=== PATIENT | female | born 1970 | race Caucasian/White ===

== ENCOUNTER 2018-03-08 06:31 | Day surgery (SDC) | payer OTHER ==
[~2018-03-08 06:31] MED LIST: CEFAZOLIN 1 GM/D5W RTU 1 GM/50 ML RTUPB IV PRN
[2018-03-08] MEDS ORDERED: FENTANYL CITRATE INJ/PF 100 MCG/2 ML AMPUL ONE (06:54)
[2018-03-08] MEDS ORDERED: MIDAZOLAM 2 MG/2 ML INJ ONE (06:54)
[2018-03-08] MEDS ORDERED: PROPOFOL INJ 200 MG/20 ML VIAL IV ONE (06:54)
[2018-03-08] MEDS ORDERED: LIDOCAINE 0.5% INJ-PF (5 MG/ML) 50 ML SDV ONE (07:00)
[2018-03-08] MEDS ORDERED: POLYMYXIN B SULFATE INJ 500000 UNIT VIAL ONE (07:18)
[2018-03-08] MEDS ORDERED: BUPIVACAINE HCL 0.5 % INJ/PF 30 ML SDV ONE (07:18)
[2018-03-08] MEDS ORDERED: LIDOCAINE 2% INJ (20 MG/ML) 20 ML MDV ONE (07:18)
[2018-03-08] MEDS ORDERED: BACITRACIN INJ 50,000 UNIT VIAL ONE (07:19)
[2018-03-08] MEDS ORDERED: NORMAL SALINE INJ/PF 0.9% 10 ML SDV ONE (07:20)
[2018-03-08] MEDS ORDERED: ALBUTEROL SULFATE 0.083% NEB 2.5 MG/3 ML AMPUL NEB ONE (07:29)
--- NOTE | 2018-03-08 09:24 | [facility] OPERATIVE REPORT E ---
[facility] Operative Report NAME: RAFAEL ALVAREZ AGE: 47Y DATE OF SURGERY: 03/08/2018 ROOM: PREOPERATIVE DIAGNOSIS: Hammertoe deformity fifth digit right foot. POSTOPERATIVE DIAGNOSIS: Hammertoe deformity fifth digit right foot. SURGICAL PROCEDURE: Correction of hammertoe by the arthroplasty fifth digit right foot. SURGEON: WALE MEI DPM PROCEDURE: Following induction of IV regional local anesthesia, the right foot and leg were prepped and draped in the usual manner. The pneumatic tourniquet was placed around the right ankle and inflated to 250 mmHg after exsanguination of limb via Esmarch bandage. The following surgical procedure was then performed: Correction of hammertoe deformity fifth digit right foot by arthroplasty. Attention was directed to the dorsal aspect of the fifth toe of the right foot where an approximately 1.5 cm dorsal linear incision was made. The incision was deep and via sharp dissection. The extensor digitorum longus tendon was incised transversely and reflected proximally from the head of the proximal phalanx. The hypertrophied head of the proximal phalanx was then freed from its soft tissue attachments via sharp dissection. Utilizing a double action bone cutting forceps, the hypertrophied head of the proximal phalanx was osteotomized perpendicular to the long axis of the bone and removed en toto from the wound. Attention was directed to the plantar aspect of the wound and utilizing sharp dissection, the plantar plate was excised. Attention was then directed to the middle phalanx. Utilizing sharp dissection, the lateral aspect of the middle phalanx was freed from its soft tissue attachments. The hypertrophied lateral aspect of the middle phalanx was then osteotomized parallel to the long axis from the bone and removed en toto from the wound. Both the lateral aspect of the middle phalanx and the head of the proximal phalanx were rasped smooth utilizing a handheld crosscut/horizontal rasp. The area was then flushed with copious amounts of an antibacterial saline solution. The extensor digitorum longus tendon was then coapted and maintained utilizing simple interrupted sutures of 3-0 Vicryl. The skin was then coapted and maintained utilizing horizontal mattress sutures of 5-0 nylon. A dry sterile dressing was then applied consisting of Dakota silk, 4 x 4s, Conform, Kerlix, and Coban. The pneumatic tourniquet was released. It was noted that all digits were warm and viable, and the patient was transferred to the recovery room. DICTATING PHYSICIAN: WALE MEI D.P.M. [id number] PHY#: [id number] ID: [id number] JOB#: [id number] ACCT: [id number] cc:WALE MEI DPM >
--- NOTE | 2018-03-08 09:28 | [facility] DISCHARGE SUMMARY E ---
[facility] Discharge Summary NAME: RAFAEL ALVAREZ AGE: 47Y ADMITTED: 03/08/2018 DISCHARGED: 03/08/2018 SURGICAL PROCEDURE: Correction of hammertoe deformity fifth digit right foot by arthroplasty. POSTOPERATIVE DIAGNOSIS: Hammertoe deformity fifth digit right foot. SURGEON: Wale Wright DPM HOSPITAL COURSE: The patient was admitted to [facility] with a chief complaint of a painful fifth toe on her right foot. She stated that it was always turning red and blistering up and causing pain whenever she wore shoes. The patient desired to have this problem surgically corrected. She underwent the above surgical procedure without any complications and was transferred to the recovery room. She was discharged with an ice pack, a postoperative shoe, postoperative instructions, and postoperative prescriptions of Percocet 5/325 mg #30 and Phenergan 25 mg #15. She was given a followup appointment in the doctor's office on 03/14. The patient was then discharged from [facility]. DICTATING PHYSICIAN: WALE WRIGHT D.P.M. [id number] PHY#: [id number] ID: [id number] JOB#: [id number] ACCT: [id number] cc:WALE RWIGHT DPM > SUNITHA
== END 2018-03-08 09:25 | disposition home or self-care (01) ==
LOC: SC 06:31
PROVIDERS: ATTEND Podiatrist Foot Surgery
DX: M20.41 Other hammer toe(s) (acquired), right foot (principal); I10 Essential (primary) hypertension; J44.9 Chronic obstructive pulmonary disease, unspecified; Z79.899 Other long term (current) drug therapy
CPT/HCPCS: 82962; 28285; J2250; J3490 ×6; J0690; J3010; J2704; 1480